=== PATIENT | female | born 1980 | race Caucasian/White ===

== ENCOUNTER 2018-01-22 07:50 | Inpatient (IN) ==
[2018-01-22] MEDS ORDERED: Ondansetron 4 MG/2 ML VIAL IVP PRN (08:00)
[2018-01-22] MEDS ORDERED: Famotidine 20 MG/2 ML VIAL IVP PRN (08:00)
[2018-01-22] MEDS ORDERED: Ringers Solution, Lactated 1,000 ML IVC SCH (08:00)
[2018-01-22] MEDS ORDERED: Naloxone 0.4 MG/ML INJ IVP PRN (08:00)
[2018-01-22] MEDS ORDERED: Lidocaine 1% 20 ML MDV INFILT PRN (08:00)
--- NOTE | 2018-01-22 08:05 | OB/GYN History & Physical ---
Date of Encounter: 01/22/18 Time of Encounter: 08:00 Assessment and Plan (1) and not yet delivered in third trimester Current visit: Yes Status: Acute (2) 41 weeks gestation of Current visit: Yes Status: Acute (3) Elective induction of labor planned Current visit: Yes Status: Acute Patient will be augmented with Pitocin since she is already willis and 3 cm dilated. Unable to document that she is truly ruptured we will hold off on any antibiotics plan is to anticipate vaginal delivery (4) Advanced maternal age in multigravida Current visit: No Status: Acute Qualifiers: Trimester: third trimester Qualified Code(s): O09.523 - Supervision of elderly multigravida, third trimester History of Present Illness HPI: Ms. Miles is a 37 year old female 2 para 1 at 41 and one sevenths weeks by last menstrual period equal to an 8-1/7 week ultrasound who presented for induction of labor secondary to postdates. Patient does not want to be induced at all possible did advise if she had not delivered by 41 weeks may need to deliver her due to postdate status and advanced maternal age. She has been getting NSTs weekly have all been reactive. Patient did have an ultrasound 4 weeks ago placed the baby at 3340 g and had a FAISAL of 20 cm 2 weeks ago. She was not making any cervical change in the office reason why we let her go so far. Patient thinks this morning that she might be ruptured started leaking some fluid still having good movement and occasional contractions. Patient is GBS negative, rubella positive, Rh+. Past Med Surg Social Fam HX - Past Medical History Medical history: asthma Psychiatric history: no psych history - Past Surgical History Surgical History: other ([place] teeth) - Social History Smoking Status: Never smoker Alcohol use: none Drug use: none Occupational status: employed Current living situation: Home - Independent Activity Level: Independent ambulation Recent Out of Country Travel Within the Last 8 Weeks: No Exposure or Possible Exposure to Illness During Travel: No - Family History Mother Name: Nohemy Family Member Ethnicity: Non- Living Status: Still Living Hx Family Cardiac Disorders: No Hx Family Respiratory Disorders: No Hx Family Cancer: No Hx Family Medical Disorders: No Obstetrical History - Pregnancies : 2 Para: 1 Term: 1 : 0 Ab's: 0 Livin Medications and Allergies Advair 250-50 Diskus 01/03/18 [History] Albuterol Inhaler 90 mcg IH PRN PRN 01/03/18 [History] Loratadine 10 mg PO DAILY 01/03/18 [History] Formula Tablet 1 tab PO DAILY 01/03/18 [History] 3 Allergy/AdvReac Type Severity Reaction Status Date / Time No Known Allergies Allergy Verified 01/03/18 04:04 Review of System OB All systems PM: reviewed and no additional remarkable complaints except as stated - Genitourinary Genitourinary: other (Possible rupture membranes leaking of fluid) Exam - Constitutional Constitutional: well developed, well nourished, no acute distress, average body habitus - HEENT HEENT: EOMI, PERRL, Mucus Membranes Moist - Neck Neck exam: full ROM - Lungs Respiratory exam: CTAB - Cardiovascular Cardiovascular exam: RRR - Abdomen Abdomen: Present: bowel sounds normal, gravid - Vagina Vagina: Present: normal moisture (Nitrazine was positive on the perineum perineum was moderately wet speculum exam performed and the patient had equivocal nitrazine no pooling ferning negative) - Cervix Dilation: 3 Effacement: 80 Station: -1 ( heart tones 140s reactive contractions every 3-5 minutes irregular) Results Result Diagrams: 01/22/18 08:15 All other labs normal. - VTE Reasons for not Prescribing Prophylaxis: Treatment not Indicated - Low risk for VTE
[2018-01-22 08:34] LABS: Amphetamine Screen,Urine Negative ng/mL (Cutoff=1000); Barbiturate Screen,Urine Negative ng/mL (Cutoff=200); Benzodiazepines Screen,Urine Negative ng/mL (Cutoff=200); Cannabinoid Screen,Urine Negative ng/mL (Cutoff = 50); Cocaine Screen,Urine Negative ng/mL (Cutoff= 300); Opiate Screen,Urine Negative ng/mL (Cutoff=300); Phencyclidine Screen,Urine Negative ng/mL (Cutoff=25)
[2018-01-22 08:54] LABS: Basophils % 0.4 %; Eosinophils # 0.3 K/mcL (0.0-0.6); Eosinophils % 2.6 %; Hematocrit 38.3 % (35.3-44.9); Hemoglobin 12.4 g/dL (11.5-15.4); Immature Granulocytes % 0.5 % (0-4); Lymphocytes % 20.9 %; Mean Corpuscular HGB Conc 32.4 g/dL (31.6-35.5); Mean Corpuscular Hemoglobin 27.6 pg (28.0-33.3); Mean Corpuscular Volume 85.1 fL (83.0-100.0); Mean Platelet Volume 10.1 fL (9.4-12.4); Monocytes # 0.5 K/mcL (0.0-1.3); Monocytes % 5.4 %; Neutrophils # 6.7 K/mcL (1.6-8.9); Platelet Count 170 K/mcL (140-400); Red Cell Distribution Width 15.2 % (11.5-14.5); Segmented Neutrophils % 70.2 %
[2018-01-22] MEDS ORDERED: Oxytocin 20 units/ LR 1000 mL 20 UNIT/1,000 ML BAG IVC SCH ×2 (09:15→19:12)
--- NOTE | 2018-01-22 09:28 | Anesthesia Evaluation PreOp ---
Date of Encounter: 01/22/18 Time of Encounter: 09:24 - Past History Planned Operation: vaginal del, induction 41wks. Cardiac History: Denies any Significant Hx Pulmonary History: Asthma (no recent flare-ups.) CONFERENCE PLANNER History: Denies Any Significant HX Other Medical History: Other ([place]) Anesthesia History: No Prior Anesthetic Complications, Past Anesthesia Alcohol Use: none Drug use: none Medications and Allergies Advair 250-50 Diskus 01/03/18 [History] Albuterol Inhaler 90 mcg IH PRN PRN 01/03/18 [History] Loratadine 10 mg PO DAILY 01/03/18 [History] Formula Tablet 1 tab PO DAILY 01/03/18 [History] 3 Allergy/AdvReac Type Severity Reaction Status Date / Time No Known Allergies Allergy Verified 01/03/18 04:04 Anesthesia Results - Labs 01/22/18 08:15 Anesthesia Exam - HEENT Pupil (Motor): Pupils equal Mallampati: III Teeth: Normal Oral Opening: Greater than 3 - CONFERENCE PLANNER LOC: Oriented CONFERENCE PLANNER Motor: Normal RUE, Normal LUE, Normal RLE, Normal LLE, Normal Face CONFERENCE PLANNER Sensory: Normal: RUE, LUE, RLE, LLE, Face - Cardiac Rhythm: Regular Murmur: None - Pulmonary Breath Sounds: bilateral Clear Respiratory Effort: Symmetrical Anesthesia Assess/Plan ASA Score: 2 Modified Maynor Scale for Level of Consciousness: Cooperative, oriented, and tranquil Anesthetic Plan: General, Regional Monitoring Plan: Standard Monitors Recovery Plan: PACU
[2018-01-22] MEDS ORDERED: Epidural Premix (fent/bupiv) 110 ML EP ONE (09:53)
[2018-01-22] MEDS ORDERED: Epidural Premix (fent/bupiv) 110 ML EP SCH (10:00)
--- NOTE | 2018-01-22 11:16 | OB Labor Progress Note ---
Date of Encounter: 01/22/18 Time of Encounter: 11:15 Labor Progress Note - Subjective Subjective: getting uncomfortable requesting an epidural - Cervix Cervix: 4/90/0 - Heart Tones Heart Tones: FHT's 140 reactive - [place]: contractions every 2 min - Plan Plan: will get her an epidural and then AROM and anticipate
--- NOTE | 2018-01-22 11:49 | Anesthesia Procedures ---
Date of Encounter: 01/22/18 Time of Encounter: 11:24 Procedures: Anesthesia - Epidural/Spinal Patient ID/Chart reviewed: Yes Patient examined: Yes OB Eval: Gestational age: term OB Eval: : 2 OB Eval: Hx Para: 1 OB Eval: Dilated at (cm): 4 OB Eval: Contractions: Non-stressed pattern Consent Obtained: Yes Supplemental Oxygen: None/Room Air Site Prep: Aseptic Technique, Sterile prep and drape, 0.5% Chlorhexidine/Alcohol Patient position: upright Local Anesthetic: Lidocaine 1% Amount of Local Anesthetic used: 2 Touhy Needle Gauge: 18 Touhy Needle Depth (cm): 7 Test Dose (1.5% Lido + Epi): Volume given (mls): 3 Test Dose Result: Negative Loading Dose: Other: 10 from solution Loading Dose Administered: Thru Catheter Infusion Med: 0.125% Bupivacaine w/ 2 mcg/ml Fentanyl Infusion Rate (mls/hr): [address]: Tegaderm, Tape Interspace Used: L3-L4 Loss of Resistance (CHANI): Yes (saline) Blood: No CSF: No Paresthesia: No Procedure: vss though out procedure, FHR stable per RN's
--- NOTE | 2018-01-22 11:58 | OB Labor Progress Note ---
Date of Encounter: 01/22/18 Time of Encounter: 12:00 Labor Progress Note - Subjective Subjective: comfortable after epidural - Cervix Cervix: 590/0 AROM clear fluid - Heart Tones Heart Tones: FHT's 140's reactive - [place]: IUPC placed contractions every 2 min - Plan Plan: anticipate
--- NOTE | 2018-01-22 17:56 | OB/GYN Procedure Note ---
Delivery - Delivery Date: 01/22/18 Provider: Dante Carrion Intrapartum events: none Delivery augmentation: rupture of membranes, pitocin Delivery monitor: external FHT, external uterine Anesthesia: local, epidural Estimated Blood Loss: 300 - Infant (s) Infant A Infant Delivery Date: 01/22/18 Infant Delivery Time: 17:14 Presentation: vertex Position: HUNTER Route of delivery: Gender: Male Pounds: 10 Ounces: 2 Weight Gram: 4.59 kg at 1 minute: 8 at 5 mins: 8 Shoulder Dystocia: not encountered Specimens collected: cord blood Placenta: spontaneous Cord: 3 umbilical vessels - Repair Episiotomy: none Laceration Description: Periurethral (Bilateral), Perineal - 2nd Degree - Complications Delivery complications: none Delivery comments: Patient is a 37-year-old 2 para 1 at 41-1/7 weeks who presented for induction of labor secondary to term and post dates. Upon arrival to labor and delivery patient was already willis every 2-3 minutes and was 3 cm. Patient was feeling the contractions and the patient was going into labor on her own. Patient did not want to be induced wanted natural labor we have been doing weekly NSTs and advised if she has not delivered by 41 weeks with induced. Patient was augmented with Pitocin and she was artificially ruptured with clear fluid noted she did receive an epidural prior to that. Patient progressed rapidly to become complete we did attempt to have the patient push she pushed for approximately 45 minutes but the head was not coming down and a suspected the baby might be ROP patient is still very comfortable we decided would allow the patient to labor down and we did some positional changes this did seem to help the patient she was beginning to feel more pressure and we had started pushing again patient was able to push effectively and then was able to deliver a viable male infant in left occiput posterior presentation at 1714. There was no nuchal cord, no meconium, infant was bulb suctioned on the abdomen , Apgars at 1 minutes, 9 at times, weight was 10 lbs. 2 oz. Placenta was then delivered spontaneously through this cord, pool nurse at the [facility] , anesthesia epidural local, estimated blood loss 300 mL. Patient did have a second-degree perineal laceration and bilateral periurethral. Incision repaired with 3-0 Vicryl fashion with 0 Vicryl in usual fashion. The cervix vagina was visualized intact. During the labor process I could not tell if she had a Bartholin cyst on the right but after the delivery could not identify it due to edema of both labia and I suspected it was probably just swelling from the labor process and no attempt was made to lancet at this time. All needles lap sponge counts were correct 3. She will be observed 2 hours before being taken to floor. - Disposition Mom disposition: stable in LDR [place] disposition: stable in LDR
[2018-01-22] MEDS ORDERED: Benzocaine/Menthol 56 GM AEROSOL SPRAY TP PRN (19:12)
[2018-01-22] MEDS ORDERED: Acetaminophen 325 MG TABLET PO PRN (19:12)
[2018-01-22] MEDS ORDERED: *HR* HYDROcodone/Acet 5/325 mg TABLET PO PRN (19:12)
[2018-01-22] MEDS ORDERED: Measles/Mumps/Rubella Vacc 0.5 ML VIAL SQ PRN (19:12)
[2018-01-22] MEDS ORDERED: Lanolin 28 GM TUBE TP PRN (19:12)
[2018-01-22] MEDS: Ibuprofen 600 MG TABLET PO PRN (19:38)
[2018-01-22] MEDS ORDERED: Famotidine 20 MG/2 ML VIAL IVP ONE (22:53)
[2018-01-23] MEDS: Ibuprofen 600 MG TABLET PO PRN ×2 (06:39→16:16)
[2018-01-23] MEDS ORDERED: Prenatal Vit/FA 1 EACH TABLET PO SCH (09:00)
--- NOTE | 2018-01-23 09:31 | Discharge Summary ---
Date of Encounter: 01/23/18 Time of Encounter: 09:29 - Discharge Diagnosis (1) Vaginal delivery Priority: Primary Status: Acute Comments: S/P Vaginal delivery day 1 Pain is well controlled Lochia is light VSS Voiding without difficulty, passing flatus going well Discharge to guest today. - Discharge Medications Prescriptions: Ibuprofen [Motrin] 600 mg PO Q6HR PRN #30 tablet PRN Reason: Cramping Docusate [Colace] 100 mg PO BID #20 capsule Ferrous Sulfate 325 mg PO DAILY #30 tablet Home Medications: Advair 250-50 Diskus 01/03/18 [History] Albuterol Inhaler 90 mcg IH PRN PRN 01/03/18 [History] Loratadine 10 mg PO DAILY 01/03/18 [History] Formula Tablet 1 tab PO DAILY 01/03/18 [History] Albuterol Sulfate [Albuterol Inhaler] 2 puff IH QIDR PRN inhaler 01/23/18 [Rx] Benzocaine/Menthol [place] [Dermoplast [place]] 1 appl TP QID PRN aerosol 01/23/18 [Rx] Docusate [Colace] 100 mg PO BID #20 capsule 01/23/18 [Rx] Ferrous Sulfate 325 mg PO DAILY #30 tablet 01/23/18 [Rx] Ibuprofen [Motrin] 600 mg PO Q6HR PRN #30 tablet 01/23/18 [Rx] Lanolin 1 appl TP Q4HR PRN tube 01/23/18 [Rx] Allergies/Adverse Reactions: 3 Allergy/AdvReac Type Severity Reaction Status Date / Time No Known Allergies Allergy Verified 01/03/18 04:04 Data Procedures and tests throughout hospitalization: Laboratory Tests 01/22/18 01/22/18 08:15 08:15 WBC 9.6 RBC 4.50 Hgb 12.4 Hct 38.3 MCV 85.1 MCH 27.6 L MCHC 32.4 RDW 15.2 H Plt Count 170 MPV 10.1 Immature Gran % 0.5 Seg Neutrophils % 70.2 Lymphocytes % 20.9 Monocytes % 5.4 Eosinophils % 2.6 Basophils % 0.4 Neutrophils # 6.7 Lymphocytes # 2.0 Monocytes # 0.5 Eosinophils # 0.3 Basophils # 0.0 Urine Opiates Screen Negative Ur Barbiturates Screen Negative Ur Phencyclidine Scrn Negative Ur Amphetamines Screen Negative U Benzodiazepines Scrn Negative Urine Cocaine Screen Negative U Marijuana (THC) Screen Negative Date of admission: 01/22/18 07:50 Primary care physician: Roberto Lobo MD Consults: 01/22/18 19:12 Consult to Delivery Consultant [CONS] Routine Comment: Vaginal delivery, consult needed Discharging clinician: Katie Santillan Anticipated date of discharge: 01/23/18 - Patient Status Disposition: Home, Self-Care Condition: Good Functional capacity at discharge: independent ambulation Overall status at discharge: patient is progressing back to baseline - Discharge Instructions Follow Up With: Roberto Lobo MD [Primary Care Provider] - Dante Carrion DO [Partnered Physician] - - Diet and Activity Activity: increase activity as tolerated Diet: regular diet Hospital Course Reason for admission: induction of labor, IUP at term Delivery: Episiotomy: none Laceration: 2nd degree Other procedures: none complications: none Discharge diagnosis: IUP at term delivered [place] baby: male Time Attestation: Total time spent providing and/or coordinating discharge services: Time Spent: Less than 30 minutes Exam - Constitutional Vitals: Temp Pulse Resp BP Pulse Ox 97.7 F 68 16 119/80 96 01/23/18 07:54 01/23/18 07:54 01/23/18 07:54 01/23/18 07:54 01/23/18 03:17 General appearance IM: cooperative, A&O X 3, pleasant, answers questions appropriately - Respiratory Respiratory exam: Present: CTAB - Cardiovascular Cardiovascular exam IM: Present: RRR, +S1, +S2 - GI/Abdominal GI/Abdominal exam IM: normal bowel sounds, soft - Rectal Rectal exam: deferred - Uterine Tone: Firm Uterus Position: At Umbilicus, Midline - Extremities Exam Extremities exam IM: Present: normal capillary refill, normal inspection, radial pulses palpable and symmetrical - Neurological Exam Neurological exam: alert, oriented X3
[2018-01-23 17:18] VITALS: BP 127/81
== END 2018-01-23 19:25 | disposition home or self-care (01) | DRG 775 ==
LOC: 1NENULAB 07:50 → 1NENUOBS 20:39
PROVIDERS: ADMIT Obstetrics & Gynecology; ATTEND Obstetrics & Gynecology